=== PATIENT | female | born 1990 | race Caucasian/White ===

== ENCOUNTER 2017-05-27 15:45 | Emergency (ER) | payer MEDICAID, OTHER ==
[2017-05-27 15:58] VITALS: BP 102/56
--- NOTE | 2017-05-27 15:58 | UC ---
Complaint Female HPI - HPI Summary HPI Summary: 26 year old female with UTI Sx. Burning with urination for 1 day. Feels like UTI to her. No fever. No flank pain. Denies n/v/d. (urgency and frequency) Had cold 2 days ago, had some diarrhea and nausea yesterday and early this AM. No longer present. Had colitis in the past but does not feel like that at this time. No abdominal pain. - History Of Current Complaint Stated Complaint: URINARY Time Seen by Provider: 05/27/17 15:57 Hx Obtained From: Patient Hx Last Menstrual Period: 2 weeks ago Onset/Duration: Sudden Onset Timing: Constant Severity Initially: Mild Severity Currently: Mild Character: Sharp Associated Signs And Symptoms: Positive: Nausea. Negative: Fever, Back Pain, Vaginal Bleeding/Discharge, Vaginal Discharge - Allergies/Home Medications Allergies/Adverse Reactions: Allergies Allergy/AdvReac Type Severity Reaction Status Date / Time Fentanyl Allergy Intermediate itchy Verified 05/27/17 15:58 Niacin Allergy Intermediate itchy Verified 05/27/17 15:58 Vancomycin Allergy Intermediate itchy and Verified 05/27/17 15:58 red Home Medications: Home Medications Levothyroxine TAB* [Synthroid 75 MCG TAB*] 75 mcg PO 0800 05/27/17 [History Confirmed 05/27/17] PMH/Surg Hx/FS Hx/Imm Hx Previously Healthy: Yes - Surgical History Surgical History: Yes Surgery Procedure, Year, and Place: r/t congenital issue - Family History Known Family History: Positive: Diabetes - grandparents Negative: Cardiac Disease, Hypertension - Social History Occupation: Employed Full-time Lives: With Family Alcohol Use: Occasionally Substance Use Type: None Smoking Status (MU): Heavy Every Day Tobacco Smoker Amount Used/How Often: 1 pack every 2-3 days Household Exposure Type: Cigarettes Cessation Counseling: Patient Advised to Stop - Immunization History Most Recent Influenza Vaccination: has not had Most Recent Tetanus Shot: 2014 Review of Systems Genitourinary: Dysuria, Frequency, Urgency Is Patient Immunocompromised?: No All Other Systems Reviewed And Are Negative: Yes Physical Exam Triage Information Reviewed: Yes Appearance: Well-Appearing, No Pain Distress, Well-Nourished Vital Signs Reviewed: Yes Eye Exam: Normal ENT Exam: Normal Dental Exam: Normal Neck exam: Normal Neck: Positive: 1 Respiratory Exam: Normal Cardiovascular Exam: Normal Abdominal Exam: Normal Abdomen Description: Positive: Nontender, No Organomegaly, Soft. Negative: CVA Tenderness (R), CVA Tenderness (L), Distended, Guarding Musculoskeletal Exam: Normal Neurological Exam: Normal Psychological Exam: Normal Skin Exam: Normal Complaint Female Dx - Course Course Of Treatment: History of colitis recently with LLQ pain and admitted to hospital. At this time no abdominal pain . No diarrhea since 0630 today. No fevers. No chills. With potential for colitis Sx from yesterday I advised to go to ED for CT and labs but patient declined many times. We will attempt to see if Cipro for UTI can also cover slightly for the mild potential diverticulitis but exam WNL otherwise at this time. She is very agreeable to go to ED if her Sx worsen or develop abdominal pain - Differential Dx/Diagnosis Differential Diagnosis/HQI/PQRI: Urinary Tract Infection Provider Diagnoses: UTI Discharge - Discharge Plan Condition: Good Disposition: HOME Prescriptions: Ciprofloxacin HCl [Cipro 250 MG TAB] 250 mg PO BID #10 tab Phenazopyridine 200 mg (NF) [Pyridium 200 MG tab *] 200 mg PO TID #6 tab Patient Education Materials: Urinary Tract Infection in Women (ED) Forms: *Work Release Referrals: Jeanie Woo MD [Medical Doctor] - 4 Days Additional Instructions: If your symptom worsen or you develop abdominal pain go directly to the Emergency Room
--- NOTE | 2017-05-30 07:10 | UC ---
Progress - Progress Note Progress Note: please notify pt stop cipro begin septra DS twice daily (#10) her e. coli infection is resistant to cipro
== END 2017-05-27 16:47 | disposition home or self-care (01) ==
LOC: UCCORT 15:45
DX: N39.0 Urinary tract infection, site not specified (principal); F17.210 Nicotine dependence, cigarettes, uncomplicated; Z71.6 Tobacco abuse counseling; Z88.1 Allergy status to other antibiotic agents; Z88.5 Allergy status to narcotic agent; Z88.8 Allergy status to other drugs, medicaments and biological substances
CPT/HCPCS: 81003; 87077; 87086; 87186; 99212; G0463

== ENCOUNTER 2017-08-20 10:17 | Emergency (ER) | payer OTHER ==
[2017-08-20 13:21] VITALS: BP 115/61
--- NOTE | 2017-08-20 13:32 | UC ---
Respiratory Complaint HPI - HPI Summary HPI Summary: Pt presents with a persistent cough x 24 hours. Pt states cough kept her awake last night. No cough suppressants taken today. + PND. No sputum production. mild fatigue. pt states she recently completed keflex for an ear infection. + sick contact at work. No fevers, chills, rash. No cp, abd pain. No n/v/d. No [place] , vision changes. No flu vaccine this year. Pt medications reviewed this visit - History of Current Complaint Chief Complaint: UCGeneralIllness Stated Complaint: COUGH CONGESTION SORE THROAT Time Seen by Provider: 08/20/17 13:05 Hx Obtained From: Patient Hx Last Menstrual Period: 08/12/17 ?: No Onset/Duration: Sudden Onset, Lasting Days Timing: Constant Severity Initially: Moderate - worst last night Severity Currently: Mild Character: Cough: Nonproductive Alleviating Factors: Bronchodilator Associated Signs And Symptoms: Positive: URI. Negative: Fever, Wheezing, Nasal Congestion - Allergies/Home Medications Allergies/Adverse Reactions: Allergies Allergy/AdvReac Type Severity Reaction Status Date / Time Fentanyl Allergy Intermediate itchy Verified 08/20/17 13:22 Niacin Allergy Intermediate itchy Verified 08/20/17 13:22 Vancomycin Allergy Intermediate itchy and Verified 08/20/17 13:22 red PMH/Surg Hx/FS Hx/Imm Hx Previously Healthy: Yes - Surgical History Surgical History: Yes Surgery Procedure, Year, and Place: r/t congenital issue. RIGHT HAND SX ( TENDON REPAIR)--2017 - Family History Known Family History: Positive: Diabetes - grandparents Negative: Cardiac Disease, Hypertension - Social History Occupation: Employed Full-time Lives: With Family Alcohol Use: Occasionally Substance Use Type: None Smoking Status (MU): Heavy Every Day Tobacco Smoker Type: Cigarettes Amount Used/How Often: 1 pack PER WK Length of Time of Smoking/Using Tobacco: 10 YRS Household Exposure Type: Cigarettes - Immunization History Most Recent Influenza Vaccination: has not had Most Recent Tetanus Shot: 2014 Review of Systems Constitutional: Fatigue ENT: Sinus Congestion Respiratory: Cough All Other Systems Reviewed And Are Negative: Yes Physical Exam Triage Information Reviewed: Yes Appearance: Well-Appearing, No Pain Distress, Well-Nourished Vital Signs: Initial Vital Signs Temp 98.6 F 08/20/17 13:15 Pulse 84 08/20/17 13:15 Resp 12 08/20/17 13:15 BP 115/61 08/20/17 13:15 Pulse Ox 97 08/20/17 13:15 Eye Exam: Normal Eyes: Positive: Conjunctiva Clear ENT: Positive: Hearing grossly normal, Nasal congestion, TMs normal, Uvula midline, Other - + pND turibinates boggy. Negative: Pharynx normal, Tonsillar swelling, Tonsillar exudate Dental Exam: Normal Neck exam: Normal Neck: Positive: Supple, Nontender, No Lymphadenopathy Respiratory Exam: Normal Respiratory: Positive: Chest non-tender, Lungs clear, Normal breath sounds, No respiratory distress, No accessory muscle use Cardiovascular Exam: Normal Cardiovascular: Positive: RRR, No Murmur Abdominal Exam: Normal Bowel Sounds: Positive: Present Musculoskeletal Exam: Normal Neurological Exam: Normal Psychological Exam: Normal Skin Exam: Normal UC Diagnostic Evaluation - Laboratory O2 Sat by Pulse Oximetry: 97 - Radiology Radiology Interpretation Completed By: Radiologist - nad Respiratory Course/Dx - Course Course Of Treatment: Pt present with persistent cough worse last night. PT denies fevers, but reports fatigue. recent abx for ear infection. Pt with nasal congestion and PND. Will check flu and cxr. if neg, symptomatic care. secretion precaution. Pt comfortable and in agreement with plan - Differential Dx/Diagnosis Provider Diagnoses: URI. congestion Discharge - Discharge Plan Condition: Stable Disposition: HOME Prescriptions: Fluticasone NASAL SPRAY 50MCG* [Flonase NASAL SPRAY 50MCG*] 2 spray BOTH NARES DAILY #1 btl Patient Education Materials: Upper Respiratory Infection (ED) Forms: *Gen. Provider Communication, *Work Release Referrals: NADYA Sterling [Primary Care Provider] - Additional Instructions: - Stay well hydrated. Drink plenty of non-alcoholic, non-caffinated beverages - Use nasal spray daily as prescribed - It is recommended you take a decongestant such Sudafed, Claritin-D, zyrtec-D, Ne-D - humidify the air in the room where you sleep -get plenty of restful sleep - These infections are spread by secrtions - do NOT share eating or drinking utensils - clean items you share with other people such as iphone, computer mouse, TV remote, etc. Once you start to feel better, change your pillowcase and your toothbrush Contact your doctor to schedule a follow up appointment. Contact your doctor or return with questions or concerns
--- NOTE | 2017-08-20 13:50 | RAD ---
INDICATION: Productive cough COMPARISON: None TECHNIQUE: PA and lateral dual-energy views were obtained. FINDINGS: Bones/Soft Tissues: There are no acute bony findings. Cardiomediastinal: The cardiomediastinal silhouette is normal. Lungs: There are no infiltrates. Pleura: There are no pleural effusions. Other: None IMPRESSION: NORMAL STUDY.
== END 2017-08-20 14:13 | disposition home or self-care (01) ==
LOC: UCCORT 10:17
DX: J06.9 Acute upper respiratory infection, unspecified (principal); R09.81 Nasal congestion; Z72.0 Tobacco use; Z72.89 Other problems related to lifestyle
CPT/HCPCS: 71020; 87502; 99212; G0463

== ENCOUNTER 2017-10-09 10:48 | Emergency (ER) | payer OTHER ==
--- NOTE | 2017-10-09 12:37 | UC ---
UC Dental HPI - HPI Summary HPI Summary: Painful and swollen left lower jaw-last molar left lower side coming in extremely painful and swollen - History of Current Complaint Chief Complaint: UCDentalProblem Stated Complaint: DENTAL COMPLAINT Time Seen by Provider: 10/09/17 12:26 Hx Obtained From: Patient ?: No Onset/Duration: Gradual Onset, Worse Since - past few days Severity: Severe Pain Intensity: 10 Pain Scale Used: 0-10 Numeric Aggravating Factor(s): Chewing Alleviating Factor(s): Nothing Related History: Swelling - Allergies/Home Medications Allergies/Adverse Reactions: Allergies Allergy/AdvReac Type Severity Reaction Status Date / Time fentanyl Allergy See Comment Verified 10/09/17 12:43 niacin Allergy See Comment Verified 10/09/17 12:43 vancomycin Allergy Rash Verified 10/09/17 12:43 PMH/Surg Hx/FS Hx/Imm Hx Previously Healthy: No 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 RIGHT HAND SX ( TENDON REPAIR)--2017 - Family History Known Family History: Positive: Diabetes - grandparents Negative: Cardiac Disease, Hypertension - Social History Occupation: Employed Full-time Lives: With Family Alcohol Use: Occasionally Substance Use Type: None Smoking Status (MU): Heavy Every Day Tobacco Smoker Type: Cigarettes Amount Used/How Often: 1 pack PER WK Length of Time of Smoking/Using Tobacco: 10 YRS Household Exposure Type: Cigarettes - Immunization History Most Recent Influenza Vaccination: has not had Most Recent Tetanus Shot: 2014 Review of Systems Constitutional: Negative Skin: Negative Eyes: Negative ENT: Dental Pain Respiratory: Negative Cardiovascular: Negative Gastrointestinal: Negative Genitourinary: Negative Motor: Negative Neurovascular: Negative Musculoskeletal: Negative Neurological: Negative Psychological: Negative Is Patient Immunocompromised?: No All Other Systems Reviewed And Are Negative: Yes Physical Exam Triage Information Reviewed: Yes Appearance: Well-Appearing, Well-Nourished, Pain Distress Vital Signs Reviewed: Yes Eye Exam: Normal Eyes: Positive: Conjunctiva Clear ENT Exam: Normal ENT: Positive: Normal ENT inspection, Hearing grossly normal, Pharynx normal, Dental tenderness, Uvula midline. Negative: Nasal congestion, Tonsillar swelling, Tonsillar exudate, Trismus, Hoarse voice, Sinus tenderness Dental Exam: Normal Dental: Positive: Percussion Tenderness @ - left posteriolower molar, Abscess @ Neck exam: Normal Neck: Positive: Supple, Nontender, No Lymphadenopathy Respiratory Exam: Normal Respiratory: Positive: Chest non-tender, Lungs clear, Normal breath sounds, No respiratory distress, No accessory muscle use Cardiovascular Exam: Normal Cardiovascular: Positive: RRR, No Murmur, Pulses Normal, Brisk Capillary Refill Musculoskeletal Exam: Normal Musculoskeletal: Positive: Strength Intact, ROM Intact, No Edema Neurological Exam: Normal Neurological: Positive: Alert, Muscle Tone Normal Psychological Exam: Normal Skin Exam: Normal Dental Complaint Course/Dx - Course Course Of Treatment: pain control, amoxicillin follow with dentist on Wednesday - Differential Dx/Diagnosis Provider Diagnoses: dental pain with abscess Discharge - Discharge Plan Condition: Stable Disposition: HOME Patient Education Materials: Dental Abscess (ED), Toothache (ED) Referrals: [facility] [Outside] - If Needed Additional Instructions: I have given you a list of local dental providers to help you in finding a dentist---call Wednesday for follow up care
[2017-10-09 12:46] VITALS: BP 116/71
== END 2017-10-09 12:51 | disposition home or self-care (01) ==
LOC: UCCORT 10:48
DX: K08.89 Other specified disorders of teeth and supporting structures (principal); K04.7 Periapical abscess without sinus; F17.210 Nicotine dependence, cigarettes, uncomplicated
CPT/HCPCS: 99212; G0463

== ENCOUNTER 2017-12-27 13:06 | Emergency (ER) | payer OTHER ==
[2017-12-27 13:33] VITALS: BP 106/74
--- NOTE | 2017-12-27 13:43 | UC ---
General HPI - HPI Summary HPI Summary: pt states she found 2 ticks on her neck yesterday, had been hunting day prior. also having some bodyaches and weakness for a couple of days and the tick bites made her paranoid. no fever or rash. she pulled the ticks off. pt also c/o generalized gum soreness/swelling. states brushes 2x's daily and goes to [facility] a couple of times a year for cleanings. states gums bleed with brushing. - History of Current Complaint Chief Complaint: JUSTINkin Stated Complaint: SKIN COMPLAINT NECK/ORAL COMPLAINT Time Seen by Provider: 12/27/17 13:35 Hx Obtained From: Patient Hx Last Menstrual Period: 12/21/17 Onset/Duration: Gradual Onset Timing: Constant Pain Intensity: 8 Associated Signs & Symptoms: Negative: Fever - Allergy/Home Medications Allergies/Adverse Reactions: Allergies Allergy/AdvReac Type Severity Reaction Status Date / Time fentanyl Allergy See Comment Verified 12/27/17 13:37 niacin Allergy See Comment Verified 12/27/17 13:37 vancomycin Allergy Rash Verified 12/27/17 13:37 PMH/Surg Hx/FS Hx/Imm Hx - Additional Past Medical History Additional PMH: congenital hyperplasia Endocrine History: Thyroid Disease - Surgical History Surgical History: Yes Surgery Procedure, Year, and Place: r/t congenital issue. RIGHT HAND SX ( TENDON REPAIR)--2017 [facility] - Family History Known Family History: Positive: Diabetes - grandparents Negative: Cardiac Disease, Hypertension - Social History Occupation: Employed Full-time Alcohol Use: Occasionally Substance Use Type: None Smoking Status (MU): Light Every Day Tobacco Smoker Type: Cigarettes Amount Used/How Often: 1 pack PER WK Length of Time of Smoking/Using Tobacco: 10 YRS Household Exposure Type: Cigarettes - Immunization History Most Recent Influenza Vaccination: has not had Most Recent Tetanus Shot: 2014 Review of Systems Constitutional: Other - bodyaches, weakness Skin: Negative Eyes: Negative ENT: Other - gum pain, swelling, bleeding with brushing Respiratory: Negative Cardiovascular: Negative Gastrointestinal: Negative Genitourinary: Negative Motor: Negative Neurovascular: Negative Musculoskeletal: Negative Neurological: Negative Psychological: Negative Is Patient Immunocompromised?: No All Other Systems Reviewed And Are Negative: Yes Physical Exam Triage Information Reviewed: Yes Appearance: Well-Appearing Vital Signs: Initial Vital Signs Temp 98.4 F 12/27/17 13:21 Pulse 103 12/27/17 13:21 Resp 20 05/07/18 13:21 BP 106/74 12/27/17 13:21 Pulse Ox 98 12/27/17 13:21 Vital Signs Reviewed: Yes Eyes: Positive: Conjunctiva Clear ENT: Positive: Pharynx normal, TMs normal. Negative: Nasal congestion, Nasal drainage Dental: Negative: Percussion Tenderness @, Abscess @ Neck: Positive: Supple, Nontender, No Lymphadenopathy Respiratory: Positive: Lungs clear, Normal breath sounds Cardiovascular: Positive: RRR, No Murmur Abdomen Description: Positive: Nontender, No Organomegaly, Soft Bowel Sounds: Positive: Present Musculoskeletal: Positive: ROM Intact Neurological: Positive: Alert Psychological: Positive: Age Appropriate Behavior Skin Exam: Normal Course/Dx - Course Course Of Treatment: non toxic, no concern for myxedema coma. will refer to her pcp for recheck and possible thyroid testing. tick bite just occured thus no concern for lyme from this bite. will tx to prevent lyme dz. will tx for gingivitis with amoxicillin. pt agrees to f/u Doug carballo, her dentist. - Differential Dx - Multi-Symptom Provider Diagnoses: tick bite, gingivitis, malaise Discharge - Sign-Out/Discharge Documenting (check all that apply): Discharge/Admit/Transfer - Discharge Plan Condition: Stable Disposition: HOME Prescriptions: Amoxicillin PO (*) [Amoxicillin 875 MG (*)] 875 mg PO BID 7 Days #14 tab DOXYcycline CAP(*) [DOXYcycline 100MG CAP(*)] 200 mg PO DAILY 1 Days #2 cap Patient Education Materials: Gingivitis (ED), Tick Bite (ED), Weakness (ED) Referrals: Jeanie Woo MD [Primary Care Provider] - 5 Days - Billing Disposition and Condition Condition: STABLE Disposition: HOME
== END 2017-12-27 13:53 | disposition home or self-care (01) ==
LOC: UCCORT 13:06
DX: S10.86XA Insect bite of other specified part of neck, initial encounter (principal); W57.XXXA Bitten or stung by nonvenomous insect and other nonvenomous arthropods, initial encounter; Y93.9 Activity, unspecified; Y92.9 Unspecified place or not applicable; K05.10 Chronic gingivitis, plaque induced; R53.81 Other malaise; Z88.1 Allergy status to other antibiotic agents; Z88.5 Allergy status to narcotic agent; Z91.048 Other nonmedicinal substance allergy status; F17.210 Nicotine dependence, cigarettes, uncomplicated
CPT/HCPCS: 99212; G0463

== ENCOUNTER 2018-03-30 17:34 | Emergency (ER) | payer OTHER, MEDICAID ==
[2018-03-30 18:15] VITALS: BP 117/43
--- NOTE | 2018-03-30 18:20 | UC ---
Back Pain HPI - HPI Summary HPI Summary: Pt c/o sudden onset of low back pain after lifting very heavy object. Pt states it feels as though her low back was "ripping" while lifting the heavy object. Pt c/o worsening pain the next morning after lifting object - History of Current Complaint Chief Complaint: UCBackPain Stated Complaint: LOW BACK PAIN Time Seen by Provider: 03/30/18 18:19 Hx Obtained From: Patient Hx Last Menstrual Period: 03/23/18 ?: No Onset/Duration: Gradual Onset, Lasting Hours, Lasting Weeks Timing: Constant Severity Initially: Mild Severity Currently: Moderate Pain Intensity: 7 Back Pain: Is Discrete @ - low back Character: Dull, Aching, Spasmodic, Stiffness Aggravating Factor(s): Movement, Lifting, Bending Alleviating Factor(s): Rest, Position Associated Signs And Symptoms: Positive: Negative - Risk Factors AAA Risk Factors: Negative TAD Risk Factors: Negative Cauda Equina Risk Factors: Negative Epidural Abscess Risk Factors: Negative - Allergies/Home Medications Allergies/Adverse Reactions: Allergies Allergy/AdvReac Type Severity Reaction Status Date / Time fentanyl Allergy See Comment Verified 03/30/18 18:05 niacin Allergy See Comment Verified 03/30/18 18:05 vancomycin Allergy Rash Verified 03/30/18 18:05 PMH/Surg Hx/FS Hx/Imm Hx Previously Healthy: Yes - Surgical History Surgical History: Yes Surgery Procedure, Year, and Place: 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 RIGHT HAND SX (TENDON REPAIR)--2016 [facility]. - Family History Known Family History: Positive: Diabetes - grandparents Negative: Cardiac Disease, Hypertension - Social History Occupation: Employed Full-time Lives: With Family Alcohol Use: Occasionally Substance Use Type: None Smoking Status (MU): Light Every Day Tobacco Smoker Type: Cigarettes Amount Used/How Often: 1 cig/day Length of Time of Smoking/Using Tobacco: 10 YRS Have You Smoked in the Last Year: Yes Household Exposure Type: Cigarettes - Immunization History Most Recent Influenza Vaccination: has not had Most Recent Tetanus Shot: 2014 Review of Systems Constitutional: Negative Skin: Negative Eyes: Negative ENT: Negative Respiratory: Negative Cardiovascular: Negative Gastrointestinal: Negative Genitourinary: Negative Motor: Decreased ROM - low back Neurovascular: Negative Musculoskeletal: Arthralgia, Decreased ROM - low back, Myalgia Neurological: Negative Psychological: Negative Is Patient Immunocompromised?: No All Other Systems Reviewed And Are Negative: Yes Physical Exam Triage Information Reviewed: Yes Appearance: Pain Distress Vital Signs: Initial Vital Signs Temp 97.3 F 03/30/18 18:06 Pulse 101 03/30/18 18:06 Resp 16 03/30/18 18:06 BP 117/43 03/30/18 18:06 Pulse Ox 99 03/30/18 18:06 Vital Signs Reviewed: Yes Eye Exam: Normal ENT: Positive: Hearing grossly normal Neck exam: Normal Respiratory: Positive: No respiratory distress Cardiovascular: Positive: Tachycardia Musculoskeletal: Positive: ROM Limited @ - low back Neurological Exam: Normal Psychological Exam: Normal Skin Exam: Normal Back Pain Course/Dx - Differential Dx/Diagnosis Differential Diagnosis/HQI/PQRI: Herniated Disc, Strain Provider Diagnoses: low back strain Discharge - Sign-Out/Discharge Documenting (check all that apply): Patient Departure - Discharge Plan Condition: Stable Disposition: HOME Prescriptions: Cyclobenzaprine TAB* [Flexeril 10 MG TAB*] 10 mg PO Q8H PRN #21 tab PRN Reason: Pain Patient Education Materials: Low Back Strain (ED), Lower Back Exercises (ED) Forms: *Work Release Referrals: Jeanie Woo MD [Primary Care Provider] - Additional Instructions: Per institutional requirements, I have reviewed the chart, however, I was not consulted specifically or made aware of this patient by the above midlevel provider. I did not personally evaluate, interact with , or disposition this patient. - Billing Disposition and Condition Condition: STABLE Disposition: Home
[2018-03-30] MEDS ORDERED: Ketorolac INJ* 60 MG/2 ML VIAL IM ONE (18:28)
== END 2018-03-30 19:03 | disposition home or self-care (01) ==
LOC: UCCORT 17:34
DX: S39.012A Strain of muscle, fascia and tendon of lower back, initial encounter (principal); X50.0XXA Overexertion from strenuous movement or load, initial encounter; Y93.89 Activity, other specified; Y92.9 Unspecified place or not applicable; Z88.6 Allergy status to analgesic agent; F17.210 Nicotine dependence, cigarettes, uncomplicated
CPT/HCPCS: 96372; 99212; G0463; J1885

== ENCOUNTER 2018-08-18 17:00 | Emergency (ER) | payer OTHER, MEDICAID ==
[2018-08-18 17:54] VITALS: BP 120/52
[2018-08-18] MEDS ORDERED: HYDROcodone/ACETAMIN 5-325 MG* 1 TAB PO ONE (17:58)
--- NOTE | 2018-08-18 18:05 | UC ---
Back Pain HPI - HPI Summary HPI Summary: helping to change a tire today, which had the front end jacked up on 2 jacks. One shankar dislodged and front of vehicle ([employer]) fell onto her low back. Able to walk, pain has not responded to use of ibuprofen 800mg x 2. No numbness or tingling. 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 - History of Current Complaint Chief Complaint: UCTrauma Stated Complaint: LOWER BACK PAIN Time Seen by Provider: 08/18/18 17:58 Hx Obtained From: Patient Hx Last Menstrual Period: 08/08/18 Onset/Duration: Sudden Onset Timing: Constant Severity Initially: Severe Severity Currently: Severe Pain Intensity: 9 Back Pain: Is Discrete @ - lumbar spine Character: Aching Aggravating Factor(s): Movement, Bending, Walking, Cough Alleviating Factor(s): Rest, OTC Meds - minimal relief Associated Signs And Symptoms: Positive: Pain with Weight Bearing - Risk Factors AAA Risk Factors: Negative TAD Risk Factors: Negative Cauda Equina Risk Factors: Negative Epidural Abscess Risk Factors: Negative - Allergies/Home Medications Allergies/Adverse Reactions: Allergies Allergy/AdvReac Type Severity Reaction Status Date / Time fentanyl Allergy See Comment Verified 03/30/18 18:05 niacin Allergy See Comment Verified 03/30/18 18:05 vancomycin Allergy Rash Verified 03/30/18 18:05 Home Medications: Home Medications Ibuprofen 800 mg PO ONCE 08/18/18 [History Confirmed 08/18/18] PMH/Surg Hx/FS Hx/Imm Hx - Additional Past Medical History Additional PMH: Congenital adrenal hyperplasia Endocrine History: Hypothyroidism - Surgical History Surgical History: Yes Surgery Procedure, Year, and Place: 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 RIGHT HAND SX (TENDON REPAIR)--2017 [facility]. TONSILLECTOMY. - Family History Known Family History: Positive: Diabetes - grandparents Negative: Cardiac Disease, Hypertension - Social History Occupation: Unemployed - just moved from [place] Alcohol Use: Occasionally Substance Use Type: None Smoking Status (MU): Light Every Day Tobacco Smoker Type: Cigarettes Amount Used/How Often: 1 cig/day Length of Time of Smoking/Using Tobacco: 10 YRS Have You Smoked in the Last Year: Yes Household Exposure Type: Cigarettes - Immunization History Most Recent Influenza Vaccination: has not had Most Recent Tetanus Shot: 2014 Review of Systems All Other Systems Reviewed And Are Negative: Yes Genitourinary: Positive: Other - voiding normally. Negative: Dysuria, Hematuria , Frequency, Urgency Motor: Positive: Decreased ROM. Negative: Weakness Neurovascular: Negative: Decreased Sensation, Decreased Pulses Musculoskeletal: Positive: Arthralgia, Myalgia Is Patient Immunocompromised?: No Physical Exam Triage Information Reviewed: Yes Appearance: Pain Distress - moderate. Vital Signs: Initial Vital Signs Temp 99.2 F 08/18/18 17:50 Pulse 101 08/18/18 17:50 Resp 23 08/18/18 17:50 BP 120/52 08/18/18 17:50 Pulse Ox 99 08/18/18 17:50 Eye Exam: Normal ENT Exam: Normal ENT: Positive: Normal ENT inspection Neck: Positive: Supple, Nontender, No Lymphadenopathy Respiratory: Positive: Lungs clear, Normal breath sounds Cardiovascular: Positive: RRR, No Murmur Musculoskeletal: Positive: ROM Limited @ - lumbar spine with flat lordotic curve , FF to 30 degrees, cannot fully extend. Neurological: Positive: Alert, Muscle Tone Normal Psychological Exam: Normal Skin Exam: Normal Diagnostics - Laboratory Diagnostic Studies Completed/Ordered: xrays of the lumbar spine show possible compression fracture of L5 vertebral body per Temo Alonzo. Radiology read is pending. Back Pain Course/Dx - Course Course Of Treatment: hydrocodone for pain control, flexeril, ice, follow up with PMD. CRM DEVELOPER reviewed under Natacha Kingston---past hydrocodone as per patient disclosure. - Differential Dx/Diagnosis Differential Diagnosis/HQI/PQRI: Fracture, Herniated Disc, Strain, Other - contusion Provider Diagnosis: Contusion of back, Compression fracture of L5 vertebra Discharge - Sign-Out/Discharge Documenting (check all that apply): Patient Departure All imaging exams completed and their final reports reviewed: No - pending radiology review of possible fracture. - Discharge Plan Condition: Stable Disposition: HOME Prescriptions: Cyclobenzaprine TAB* [Flexeril 10 MG TAB*] 10 mg PO TID PRN #30 tab PRN Reason: Spasms - Back Hydrocodone/Acetaminophen [Hydrocodone-Acetamin 5-325 mg] 2 tab PO Q8H PRN #30 tablet MDD 6 PRN Reason: Pain - Back Patient Education Materials: Crush Injury (ED) Referrals: No Primary Care Phys,NOPCP [Primary Care Provider] - Additional Instructions: As reviewed, the radiologist will read the films tomorrow and confirm if a fracture is present. Continue ibuprofen 800mg every 8 hours for base control of pain. Use hydrocodone and muscle relaxant as needed for control of pain. Follow up with your primary care doctor to determine if more imaging is needed. If you develop numbness in the legs, any difficulty with passing urine or stool , please go to the emergency deparment. - Billing Disposition and Condition Condition: STABLE Disposition: Home
== END 2018-08-18 19:44 | disposition home or self-care (01) ==
LOC: UCCORT 17:00
DX: S30.0XXA Contusion of lower back and pelvis, initial encounter (principal); S32.059A Unspecified fracture of fifth lumbar vertebra, initial encounter for closed fracture; W20.8XXA Other cause of strike by thrown, projected or falling object, initial encounter; Y92.9 Unspecified place or not applicable; Z88.5 Allergy status to narcotic agent; Z88.1 Allergy status to other antibiotic agents; F17.210 Nicotine dependence, cigarettes, uncomplicated
CPT/HCPCS: 72110; 99212; G0463

== ENCOUNTER 2019-03-11 15:10 | Emergency (ER) | payer MEDICAID, OTHER ==
[2019-03-11 16:36] VITALS: BP 94/63
--- NOTE | 2019-03-11 16:43 | UC ---
Complaint Female HPI - HPI Summary HPI Summary: 28 y/o female presents to the urgent care c/o frequency and burning on urination and itchy vaginal discharge for the past 3 weeks. Pt reports her female partner has a worse vaginal discharge, but she refuses to be seen by a Dr. Now she is concerned on and STD. Pt reports urinary symptoms have been on and off and she though it was going to get better w/ drinking water, but hen vaginal discharge developed. 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 Pt states pain on urination is mild 2/10. Pt denies fever, pelvic pain, lower back pain, flank pain, vaginal bleeding, SOB, chest pain, abdominal pain, N/V/D. LMP:03/09/2019 only for 1 day. - History Of Current Complaint Chief Complaint: UCGeneralIllness Stated Complaint: PERSONAL Time Seen by Provider: 03/11/19 16:41 Hx Obtained From: Patient Hx Last Menstrual Period: 03/09/19 (~lasted for half day and stopped) Onset/Duration: Gradual Onset, Lasting Weeks - 3 weeks of intermittent frequency and burning on urination w/ a mild vaginal discharge ant itchiness, Still Present, Worse Since - yesterday Timing: Intermittent, Lasting Seconds Severity Initially: Mild Severity Currently: Mild Pain Intensity: 2 - burning on urination Pain Scale Used: 0-10 Numeric Character: Burning Aggravating Factor(s): Urination, Other - itchy vaginal discharge Alleviating Factor(s): Nothing Associated Signs And Symptoms: Positive: Vaginal Discharge - mild itchy vaginal discharge. Negative: Fever, Back Pain, Vaginal Bleeding/Discharge, Nausea, Genital Swelling, Genital Blisters - Risk Factors Ectopic Risk Factor: Negative Ovarian Torsion Risk Factor: Negative - Allergies/Home Medications Allergies/Adverse Reactions: Allergies Allergy/AdvReac Type Severity Reaction Status Date / Time fentanyl Allergy Hives Verified 03/11/19 16:26 niacin Allergy Hives Verified 03/11/19 16:26 vancomycin Allergy Rash Verified 03/11/19 16:26 PMH/Surg Hx/FS Hx/Imm Hx Previously Healthy: Yes Other Endocrine History: Adrenal Hyperplasia - Surgical History Surgical History: Yes Surgery Procedure, Year, and Place: 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 RIGHT HAND SX (TENDON REPAIR)--2017 [facility]. TONSILLECTOMY. - Family History Known Family History: Positive: Diabetes - grandparents Negative: Cardiac Disease, Hypertension Family History: leukemia, gallblader cancer - Social History Occupation: Employed Full-time Lives: With Family Alcohol Use: None Substance Use Type: None Smoking Status (MU): Light Every Day Tobacco Smoker Type: Cigarettes Amount Used/How Often: 2 cig/day Length of Time of Smoking/Using Tobacco: 10 YRS Have You Smoked in the Last Year: Yes Household Exposure Type: Cigarettes - Immunization History Most Recent Influenza Vaccination: has not had Most Recent Tetanus Shot: 2014 Review of Systems All Other Systems Reviewed And Are Negative: Yes Constitutional: Positive: Negative Skin: Positive: Negative Eyes: Positive: Negative ENT: Positive: Negative Respiratory: Positive: Negative Cardiovascular: Positive: Negative Gastrointestinal: Positive: Negative Genitourinary: Positive: Dysuria, Frequency, Urgency, Vaginal/Penile Itching, Vaginal/Penile Discharge - mild white Motor: Positive: Negative Neurovascular: Positive: Negative Musculoskeletal: Positive: Negative Neurological: Positive: Negative Psychological: Positive: Negative Is Patient Immunocompromised?: No Physical Exam - Summary Physical Exam Summary: Vital signs: reviewed General: well developed, well nourished female sitting in the examining table w/o any acute distress. Head: Normocephalic, no lesions. Eyes: PERRLA, EOM's full, conjunctiva clear, fundi grossly normal. Ears: EAC's clear, TM's normal. Nose: Mucosa normal, no obstruction. Throat: Clear, no exudates, no lesions. Neck: Supple, no masses, no thyromegaly, no bruits. Chest: Lungs clear, no rales, no rhonchi, no wheezes. Heart: RR, no murmurs, no rubs, no gallops. Abdomen: Soft, no tenderness, no masses, BS normal. Pelvic: I was assisted by nurse Erlinda. External genitalia within normal limits. There is no lesions there is no masses noted. Speculum exam: The vaginal burrell are within normal limits w/ midl white cottage cheese discharge and midl blood form Pt's period . no lesions or rashes. The cervix is closed with no lesions or masses w/ mild blood coming from the os. There is no CMT's, and no adnexal masses. Sample sent to Lab for G/C and Affirm panel. Rectal: No lesions, no hemorrhoids, Back: Normal curvature, no tenderness. Extremities: FROM, no deformities, no edema, no erythema. Neuro: Physiological, no localizing findings. Skin: Normal, no rashes, no lesions noted. Triage Information Reviewed: Yes Vital Signs: Initial Vital Signs Temp 99.3 F 03/11/19 16:27 Pulse 91 03/11/19 16:27 Resp 16 03/11/19 16:27 BP 94/63 03/11/19 16:27 Pulse Ox 99 03/11/19 16:27 Complaint Female Dx - Course Course Of Treatment: 28 y/o female presents to the urgent care c/o frequency and burning on urination and itchy vaginal discharge for the past 3 weeks. Pt reports her female partner has a worse vaginal discharge, but she refuses to be seen by a Dr. Now she is concerned on and STD. Pt reports urinary symptoms have been on and off and she though it was going to get better w/ drinking water, but hen vaginal discharge developed. 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 Pt states pain on urination is mild 2/10. Pt denies fever, pelvic pain, lower back pain, flank pain, vaginal bleeding, SOB, chest pain, abdominal pain, N/V/D. LMP:03/09/2019 only for 1 day. Hx obtained. PE: WNL. Pt is hemodynamically stable. Pelvic: I was assisted by nurse Erlinda. External genitalia within normal limits. There is no lesions there is no masses noted. Speculum exam: The vaginal burrell are within normal limits w/ midl white cottage cheese discharge and midl blood form Pt's period . no lesions or rashes. The cervix is closed with no lesions or masses w/ mild blood coming from the os. There is no CMT's, and no adnexal masses on examination. Sample sent to Lab for G/C, trichomonas and affirm panel. Pt w/ possible Vaginal candidiasis. UA: 1+ leukoesterase, 2+blood and positive nitrates. test:negative. Pt educated on STD's and protection. Pt also w/ UTI. Pt Rx bactrim PO x 7 days. Pyridium 100mg PO TID x 2 days. Advised to increase fluid intake. Urine sent for culture if any abnormality Pt will be notified for further treatment. Pt advised If symptoms do not improve to return to the urgent care or f/u with PCP. Pt understood and agreed w/ plan of care. Left the clinic ambulating and hemodynamically stable. . - Differential Dx/Diagnosis Differential Diagnosis/HQI/PQRI: Cervicitis, Pelvic Inflammatory Disease, , Renal Colic, Sexually Transmitted Disease, Ureteral Stone, Urinary Tract Infection Provider Diagnosis: UTI (urinary tract infection), Screening for STD (sexually transmitted disease) , Vaginal candidiasis Discharge - Sign-Out/Discharge Documenting (check all that apply): Patient Departure - D/C home All imaging exams completed and their final reports reviewed: No Studies - Discharge Plan Condition: Stable Disposition: HOME Prescriptions: Fluconazole 150 MG (NF) [Diflucan 150 mg (NF)] 150 mg PO ONCE #1 tab Phenazopyridine TAB* [Pyridium 100 mg TAB*] 100 mg PO TID #6 tab Sulfamethox/Trimethoprim DS* [Bactrim DS 800/160 TAB*] 1 tab PO BID #14 tab Patient Education Materials: Urinary Tract Infection in Women (ED), Yeast Infection (ED) Referrals: [facility] [Outside] - 3 Days Additional Instructions: 1- Please take Bactrim PO x 7 days. Pyridium 100 mg PO TID x 2 days to alleviate urinary symptoms. Increase increase fluid intake. drink cranberry juice. 2-Urine sent for culture and vaginal swabs sent to lab . you will be notified of any abnormality for further treatment. 3- Please Take fluconazole PO as directed to alleviate vaginal candidiasis 4-If symptoms do not improve please return to the urgent care or f/u with your GROUP FITNESS MANAGER or PCP for further management. - Billing Disposition and Condition Condition: STABLE Disposition: Home - Attestation Statements Provider Attestation: Patient not seen by me. I was available for consult
[2019-03-13 13:59] LABS: Neisseria gonorrhoeae (GC) RNA Negative (Negative)
[2019-03-13 14:14] LABS: Trichomonas vaginalis Result Negative (Negative)
--- NOTE | 2019-03-14 07:38 | UC ---
- Progress Note Progress Note: please call the pt. Lab results: + Gardnerella / BV will call in Flagyl x 7 days Course/Dx - Diagnoses Provider Diagnoses: UTI (urinary tract infection), Screening for STD (sexually transmitted disease) , Vaginal candidiasis Discharge - Sign-Out/Discharge Documenting (check all that apply): Patient Departure All imaging exams completed and their final reports reviewed: No Studies - Discharge Plan Condition: Stable Disposition: HOME Prescriptions: Fluconazole 150 MG (NF) [Diflucan 150 mg (NF)] 150 mg PO ONCE #1 tab metroNIDAZOLE [Flagyl] 500 mg PO BID #14 tablet Phenazopyridine TAB* [Pyridium 100 mg TAB*] 100 mg PO TID #6 tab Sulfamethox/Trimethoprim DS* [Bactrim DS 800/160 TAB*] 1 tab PO BID #14 tab Patient Education Materials: Urinary Tract Infection in Women (ED), Yeast Infection (ED) Referrals: [facility] [place] [facility] [Outside] - 3 Days Additional Instructions: 1- Please take Bactrim PO x 7 days. Pyridium 100 mg PO TID x 2 days to alleviate urinary symptoms. Increase increase fluid intake. drink cranberry juice. 2-Urine sent for culture and vaginal swabs sent to lab . you will be notified of any abnormality for further treatment. 3- Please Take fluconazole PO as directed to alleviate vaginal candidiasis 4-If symptoms do not improve please return to the urgent care or f/u with your EDGE MOLDER or PCP for further management. - Billing Disposition and Condition Condition: STABLE Disposition: Home
== END 2019-03-11 17:47 | disposition home or self-care (01) ==
LOC: UCCORT 15:10
DX: N39.0 Urinary tract infection, site not specified (principal); Z11.3 Encounter for screening for infections with a predominantly sexual mode of transmission; B37.3 Candidiasis of vulva and vagina; F17.210 Nicotine dependence, cigarettes, uncomplicated
CPT/HCPCS: 81003; 87480; 87491; 87510; 87591; 87661; 99212; G0463